=== PATIENT | male | born 1955 | race Caucasian/White ===

== ENCOUNTER 2024-03-18 11:42 | Emergency (ER) | payer MEDICARE, OTHER ==
[2024-03-18 12:15] VITALS: BP 145/85; PULSE 92
[2024-03-18] MEDS: Albuterol/Ipratropium 3.0-0.5 MG/3 ML Neb Soln NEB ONE (12:38)
[2024-03-18 13:17] LABS: BASOPHILS PERCENT AUTO 0.5 % (0.0-1.0); EOSINOPHILS ABSOLUTE AUTO 0.1 K/mm3 (0.0-0.4); EOSINOPHILS PERCENT AUTO 0.7 % (0.0-6.0); HEMATOCRIT 43.4 % (42.0-52.0); HEMOGLOBIN 14.8 gm/dl (14.0-18.0); IMMATURE GRAN ABSOLUTE AUTO 0.13 K/mm3 (0.00-0.05); IMMATURE GRAN PERCENT AUTO 1.5 % (0.0-0.4); LYMPHOCYTES ABSOLUTE AUTO 1.2 K/mm3 (1.0-4.8); LYMPHOCYTES PERCENT AUTO 13.6 % (24.0-44.0); MEAN CORPUSCULAR HEMOGLOBIN 32.6 pg (28.0-32.0); MEAN CORPUSCULAR HGB CONC 34.1 g/dl (32.0-36.0); MEAN CORPUSCULAR VOLUME 95.6 fl (83.0-99.0); MEAN PLATELET VOLUME 9.9 fl (9.4-12.4); MONOCYTES ABSOLUTE AUTO 0.9 K/mm3 (0.0-0.8); MONOCYTES PERCENT AUTO 11.1 % (0.0-8.0); NEUTROPHILS ABSOLUTE AUTO 6.1 K/mm3 (1.8-7.7); NEUTROPHILS PERCENT AUTO 72.6 % (41.0-71.0); PLATELET COUNT,PLT 212 K/mm3 (150-400); RED BLOOD CELL COUNT 4.54 M/mm3 (4.52-5.90); WHITE BLOOD CELL COUNT,WBC 8.46 K/mm3 (3.9-11.3)
[2024-03-18 13:39] LABS: A/G RATIO 0.8 (1-2); ALBUMIN 3.4 g/dl (3.4-5.0); ANION GAP 19.5 (5-15); BILIRUBIN TOTAL 0.6 mg/dL (0.2-1.0); BUN/CREATININE RATIO 24.6 (14-18); CALCIUM 11.4 mg/dL (8.5-10.1); CREATININE 2.6 mg/dL (0.7-1.3); EST CRCL DRUG DOSING (CG) 31.16 mL/min; POTASSIUM,K 4.5 mEq/L (3.5-5.1); PROTEIN TOTAL,TP 7.9 g/dl (6.4-8.2)
[2024-03-18 13:59] LABS: CORONAVIRUS COVID-19 NAA NEGATIVE (NEGATIVE); INFLUENZA A NAA NEGATIVE (NEGATIVE); RESPIRATORY SYNCYTIAL VIR NAA NEGATIVE (NEGATIVE)
[2024-03-18] MEDS: Heparin Sodium 5,000 Units/ML Vial IVPUSH ONE (14:41)
[2024-03-18] MEDS: Heparin Sodium/D5W 25,000 UNITS/500 ML BAG IV SCH (14:56)
== END 2024-03-18 17:10 ==
LOC: JD.ED 11:42
DX: R06.02 Shortness of breath (principal); R79.89 Other specified abnormal findings of blood chemistry; R79.1 Abnormal coagulation profile; I10 Essential (primary) hypertension; E11.9 Type 2 diabetes mellitus without complications; E78.00 Pure hypercholesterolemia, unspecified; Z87.891 Personal history of nicotine dependence; Z79.82 Long term (current) use of aspirin; Z79.899 Other long term (current) drug therapy; Z79.84 Long term (current) use of oral hypoglycemic drugs; Z88.0 Allergy status to penicillin
CPT/HCPCS: 0241U; 36415; 71045; 71045-26; 80053; 83880; 84484; 85025; 85379; 85730; 93005; 94640; 96365; 96366; 99285-25; J1644; J7620-GY